=== PATIENT | male | born 1985 | race African-American/Black ===

== ENCOUNTER 2024-03-09 18:34 | Emergency (ER) | payer SELFPAY ==
[~2024-03-09] VITALS: Ht 177.8 cm; Wt 82.0 kg
[2024-03-09 18:38] VITALS: O2SAT 99
[2024-03-09 18:44] VITALS: BP 143/88; PULSE 89; RESP 18; TEMP 98.7; O2SAT 100
[2024-03-09] MEDS ORDERED: T3 PO (20:39)
== END 2024-03-09 21:18 | disposition home or self-care (01) ==
LOC: ER 18:34
DX: S62.307A Unspecified fracture of fifth metacarpal bone, left hand, initial encounter for closed fracture (principal); X58.XXXA Exposure to other specified factors, initial encounter; Y93.89 Activity, other specified; Y92.89 Other specified places as the place of occurrence of the external cause; Y99.8 Other external cause status
CPT/HCPCS: 29125; 73130; 99283